=== PATIENT | male | born 1965 | race Caucasian/White ===

== ENCOUNTER → 2020-10-30 | Day surgery (SDC) | payer OTHER ==
[~2020-10-30] MED LIST: GLUCAGON FOR INJ 1 MG VIAL ONE; HYOSCYAMINE SULFATE 0.5 MG/ML INJ ONE; INVOKANA300 MG PO; LEVEMIR FL100 UNIT/1 SC; METFORMIN HCL500 M2 PO; PRAVASTATIN SOD20 MG PO; PROCTOSOL-HC28.35 GM PR; PROPOFOL IV EMULSION 10 MG/ML 20 ML VIAL ONE; ZESTRIL10 MG PO
[2020-10-30 13:30] VITALS: BP 127/88
== END | disposition home or self-care (01) ==
LOC: OR 08:24
PROVIDERS: ATTEND Internal Medicine Gastroenterology
DX: K64.4 Residual hemorrhoidal skin tags (principal); D12.0 Benign neoplasm of cecum; R19.5 Other fecal abnormalities; K57.30 Diverticulosis of large intestine without perforation or abscess without bleeding; K64.8 Other hemorrhoids; I10 Essential (primary) hypertension; E11.9 Type 2 diabetes mellitus without complications; E78.00 Pure hypercholesterolemia, unspecified; Z01.810 Encounter for preprocedural cardiovascular examination; Z01.812 Encounter for preprocedural laboratory examination; Z20.822 Contact with and (suspected) exposure to COVID-19; Z79.4 Long term (current) use of insulin; Z68.32 Body mass index [BMI] 32.0-32.9, adult
CPT/HCPCS: 36415; 45385; 82948; 93005; J1610; J1980; J2704; U0002